=== PATIENT | female | born 1965 | race Caucasian/White ===

== ENCOUNTER 2017-03-16 16:10 | Emergency (ER) | payer MEDICAID ==
[~2017-03-16] VITALS: Ht 154.9 cm; Wt 70.8 kg
[2017-03-16 16:12] VITALS: BP 151/100
== END 2017-03-16 17:16 | disposition home or self-care (01) ==
LOC: ED 16:10
DX: S13.9XXA Sprain of joints and ligaments of unspecified parts of neck, initial encounter (principal); S23.3XXA Sprain of ligaments of thoracic spine, initial encounter; I10 Essential (primary) hypertension; V43.62XA Car passenger injured in collision with other type car in traffic accident, initial encounter; Y93.89 Activity, other specified; Y99.8 Other external cause status; Y92.89 Other specified places as the place of occurrence of the external cause
CPT/HCPCS: 72072